=== PATIENT | female | born 1970 | race Caucasian/White ===

== ENCOUNTER 2016-11-02 23:39 | Emergency (ER) | payer SELFPAY ==
[~2016-11-02] VITALS: Ht 168.9 cm; Wt 102.6 kg
[~2016-11-02 23:39] MED LIST: ALBU17AE16 IH; ASPI-623 PO; TYLENOL PO
--- OUTSIDE RECORDS SUMMARY | 2016-11-02 23:42 | XMS REPORT ---
Author Author Marcella Ferreira Organization [employer] Address Unknown Phone Unavailable Care Team Providers Care [employer] Programmer Name Role Phone Marcella Ferreira CP Unavailable Allergies No Known Allergies Problems Problem Type Condition Code Onset Dates Condition Status Assessment Generalized anxiety disorder F41.1 Active Medications Medication Code System Code Instructions Start Date End Date Status Dosage Prozac [facility] [address]-19 40 MG Orally Once a day 1 capsule in the morning Procedures Procedure Coding System Code Date COMPREHENSIVE METABOLIC PANEL CPT-4 70526 December 03, 2015 SED RATE CPT-4 12174 December 03, 2015 COMPLETE CBC W/AUTO DIFF WBC CPT-4 84323 December 03, 2015 HEMOGLOBIN A1C, IN HOUSE CPT-4 82676 December 03, 2015 TSH CPT-4 79149 December 03, 2015 LIPID PANEL CPT-4 57286 December 03, 2015 Results Name Result Date Reference Range Unit Abnormality Flag In House HB A1c ----Hemoglobin A1c 5.5 [id number] Summary Purpose [employer] Submission
--- OUTSIDE RECORDS SUMMARY | 2016-11-02 23:42 | XMS REPORT | Referral Summary ---
Author Author [facility], Family Medicine Organization [facility] [place] Address Unknown Phone Unavailable Care Team Providers Care Housing Inspectors Name Role Phone Jossue Eckert Primary Care Physician [phone] Encounter VC Date(s): 02/20/15 - 02/20/15 [facility], [address] [place] [id number] Discharge Disposition: 01-Home or Self Care Attending Physician: Ary Soriano MD Admitting Physician: Ary Soriano MD Vital Signs Most recent to 1 oldest [Reference Range]: Temperature Tympanic 36.3 degC [36.6-38.1 degC] *LOW* (02/20/15 12:56 PM) Peripheral Pulse 78 bpm Rate [60-100 bpm] (02/20/15 12:56 PM) Respiratory Rate 17 br/min [14-20 br/min] (02/20/15 12:56 PM) Blood Pressure 120/80 mmHg [90-140/60-90 mmHg] (02/20/15 12:56 PM) Problem List Condition Effective Dates Status Health Status Informant Anxiety(Confirmed) Resolved Asthma(Confirmed) Resolved Depression(Confirmed Resolved ) Migraines(Confirmed) Resolved Peptic Resolved ulcers(Confirmed) Allergies, Adverse Reactions, Alerts Substance Reaction Severity Status iodine Active Medications aspirin 81 mg, Oral, Daily, 0 Refill(s) Start Date: 01/17/14 Status: Ordered FLUoxetine 40 mg oral capsule 40 mg 1 caps, Oral, Daily, # 90 caps, 2 Refill(s), Pharmacy: [id number], 1 caps Oral Daily Start Date: 02/20/15 Status: Ordered Results No data available for this section Immunizations No data available for this section Procedures Procedure Date Related Diagnosis Body Site Mammogram - screening 01/18/04 Tonsillectomy Tubal ligation Social History Social History Type Response Smoking Status Current every day smoker Assessment and Plan Extracted from: Title: Office Visit Note Author: Ary Soriano MD Date: 02/20/15 Assessment/Plan Depression She will continue the current dose of fluoxetine 40 mg and will follow-up as needed with her new primary care doctor. Ordered: Office Visit Level 3 Est 73125 Orders: FLUoxetine, 40 mg 1 caps, Oral, Daily, # 90 caps, 2 Refill(s), Pharmacy: [id number], 1 caps Oral Daily
--- OUTSIDE RECORDS SUMMARY | 2016-11-02 23:42 | XMS REPORT ---
Author Author Marcella Ferreira Organization [employer] Address Unknown Phone Unavailable Care Team Providers Care School Services Officer Name Role Phone Marcella Ferreira CP Unavailable Allergies, Adverse Reactions, Alerts Substance Reaction Event Type IVP dye swelling/hives Non Drug Allergy Problems Problem Type Condition Code Onset Dates Condition Status Assessment Generalized anxiety disorder F41.1 Active Medications Medication Code System Code Instructions Start Date End Date Status Dosage Prozac [facility] [address]-60 40 MG Orally Once a day 1 capsule in the morning HydrOXYzine HCl [facility] [address]-29 25 MG Orally daily as need March 12, 2016 1 tablet Procedures Procedure Coding System Code Date OFFICE VISIT, EST-LOW COMPLEXITY (15 MIN.) CPT-4 12754 March 12, 2016 Vital Signs Date/Time: March 12, 2016 Temperature 99.1 F Height 67 in Weight 227.4 lbs Blood Pressure Diastolic 82 mm Hg Blood Pressure Systolic 138 mm Hg Cardiac Monitoring Heart Rate 84 /min BMI 35.61 Index Respiratory Rate 16 /min Results No Known Results Summary Purpose [employer] Submission
--- NOTE | 2016-11-03 00:32 | ERPDOC ---
Departure Disposition Decision Date: Nov 03, 2016 Disposition Decision Time: :19 Disposition: 01 DISCHARGED HOME, SELF-CARE Impression Impression Impression: Primary Impression: Contusion of right foot, initial encounter Additional Impression: Laceration of right foot excluding toes Encounter type: initial encounter Qualified Codes: S91.311A - Laceration without foreign body, right foot, initial encounter Severity: Moderate Condition: Stable Seen By: Physician only Referrals: MAYNOR HERNANDEZ MD (Family) Patient Instructions: Foot Contusion (ED), RICE Therapy (ED) Problems/Meds/Labs Reviewed?: Yes Medications reviewed and manag: Yes Additional Instructions: Recommend ibuprofen 800 mg every 8 hours follow-up with PCP X-RAY INSTRUCTIONS: Your X-ray has been interpreted by the Emergency physician. Your X-ray will be re-read by a radiologist within 24 hours. If the interpretation differs from what you have been told, you will be notified at the phone number you provided at registration. Your local primary care physician will also receive a copy of the Radiologist's report. Follow up care ordered?: Yes Mental Status: Alert, Oriented HPI General Chief Complaint: Lower Extremity Injury Stated Complaint: INJURED FOOT Time Seen by Provider: 00:32 Source: patient Exam Limitations: no limitations HPI Foot/Ankle Initial Comments Patient is a 46-year-old female presents emergency room for evaluation of right foot pain. Patient states this morning she accidentally ran into the edge of her bed frame had immediate pain and swelling to the right foot approximately tarsals 345. Patient still able ambulate, however having increased pain does have a small nonbleeding laceration on the top of the foot. Occurred At: home Onset: Rapid Duration: 6-12 hrs Pain Scale: Now & Worst: 6/10 Location: right: foot Method of Injury: direct blow Allergies: Coded Allergies: IV Dye, Iodine Containing Contrast (Verified Allergy, Severe, 03/15/12) Past History Past Medical History Respiratory: asthma Female: UTI, endometriosis, pyelonephritis Surgical History General: tonsils Reproductive/: other, tubal ligation Family History Family PMH: FOUND: cancer Vaccines Hx Influenza Vaccination: No Hx Pneumococcal Vaccination: No Social History Substance Use Type: does not use Alcohol Intake: none Review of Systems Constitutional Constitutional: DENIES: appetite decrease, chills, dizziness, fever, weakness Eyes Vision: DENIES: double vision, loss of visual narvaez ENMT Sinuses: DENIES: congestion, rhinorrhea Mouth/Throat: DENIES: scratchy throat, sore throat Cardiovascular Cardiac: DENIES: chest pain, dyspnea on exertion Rhythm/Rate: DENIES: tachycardia Pulmonary Respiratory: DENIES: cough, dyspnea, sputum, tachypnea GI Upper Abdomen: DENIES: nausea, pain, vomiting Lower Abdomen: DENIES: constipation, diarrhea Musculoskeletal General: see HPI Integumentary Skin: see HPI Neurological General: DENIES: headache Endocrine Endocrine: DENIES: heat/cold intolerance Hematologic/Lymphatic Hematologic/Lymphatic: DENIES: anemia Exam General General Nourishment: well nourished, well developed Fastrak Foot/Ankle Foot/Ankle : Leg: Right Leg: NOT FOUND: contusion, deformity, discoloration, swelling, tender Ankle: ecchymosis, swelling, tender lat. foot, NOT FOUND: numbness, tender lat. malleolus, tender med. malleolus, tender mid foot Foot: NOT FOUND: tender 1st MTP joint, tender plantar fascia Toes: NOT FOUND: decreased ROM, nail avulsion, subungual hematoma Posterior Tibial Pulse: 3+ Dorsalis Pedis Pulse: 3+ Comments Patient has a small 1.5 cm laceration on the dorsum of right foot no active bleeding Neurologic RN Documented GCS Eye Opening: Verbal: Motor: Total: Differential Diagnoses Considering: Contusion, Fracture, Sprain, Strain Progress Results/Orders Orders Procedure Category Date Status Time Ibuprofen (Motrin) PHA 11/03/16 Complete 00:45 Foot Right 3 Views RAD 11/03/16 Taken 00:37 Premade Splint EDM 11/03/16 Transmitted 01:21 Crutches EDM 11/03/16 Transmitted 01:29 Medications Current ED Medications Ibuprofen (Motrin) 800 mg O ONCE PO Last administered on 11/03/16t 01:00; Start 11/03/16 at 00:45; Stop 11/03/16 at 00:46; Status DC Xray Xray : Xray: Foot R Interpretation: Normal, Interpreted by Me (no acute fractures or dislocations noted) ERIC HUDSON MD Nov 03, 2016 00:32
[2016-11-03] MEDS ORDERED: IBUPROFEN 800 MG TABLET PO ONE (00:45)
[2016-11-03 00:53] VITALS: Ht 168.9 cm; Wt 102.6 kg
[2016-11-03] MEDS ORDERED: FLUO20CA30 PO (01:14)
--- NOTE | 2016-11-03 01:15 | NUR ---
return from xray
[2016-11-03 01:40] VITALS: BP 148/85; PULSE 76; RESP 18; TEMP 97.9; O2SAT 97
--- NOTE | 2016-11-03 01:40 | NUR ---
depart pt is given dismissal instructions with verbal understanding. pt leaves ambulatory on crutches to ed registration desk
--- NOTE | 2016-11-03 07:54 | DI ---
Indication: ITS.REASON: direct blow metatarsals 345 PROCEDURE: FOOT RIGHT 3 VIEWS: Encounter: Initial Comparison: None Findings: There is no acute fracture, dislocation or malalignment identified. Impression: No acute osseous abnormality. .
== END 2016-11-03 01:40 | disposition home or self-care (01) ==
LOC: ED 23:39
DX: S90.31XA Contusion of right foot, initial encounter (principal); S91.311A Laceration without foreign body, right foot, initial encounter; W22.03XA Walked into furniture, initial encounter; Y93.9 Activity, unspecified; Y92.003 Bedroom of unspecified non-institutional (private) residence as the place of occurrence of the external cause; Y99.8 Other external cause status